=== PATIENT | male | born 1955 | race Caucasian/White ===

== ENCOUNTER 2016-07-05 07:12 | Day surgery (SDC) | payer OTHER ==
[~2016-07-05] VITALS: Ht 185.4 cm; Wt 104.3 kg
[~2016-07-05 07:12] MED LIST: ASPI-973 PO; ATOR20TA PO; HYDR-4003 PO; HYDR25TA4 PO; LEVO200T6 PO; LISI-567 PO; METF500T4 PO; METO50TA3 PO; ONDA4TAB9 PO; Sodium Chloride LOK Flush 10 mL Syringe IV PRN; fentaNYL-PF 50 mCg/mL 2 mL Inj IVPUSH PRN
[2016-07-05 08:10] VITALS: BP 143/102; PULSE 98; RESP 18; O2SAT 99
[2016-07-05] MEDS ORDERED: 0.9% Sodium Chloride 1,000 ML IV ONE ×2 (08:50)
[2016-07-05 09:45] VITALS: BP 142/81; PULSE 69; RESP 16; O2SAT 98
[2016-07-05 09:57] VITALS: BP 125/70; PULSE 84; RESP 14; O2SAT 98
[2016-07-05 10:06] VITALS: BP 137/82; PULSE 81; RESP 16; O2SAT 97
--- NOTE | 2016-07-05 13:12 | ENDO ---
[address] [address] ENDOSCOPY PROCEDURE PATIENT: RACHEL ROOT : 1955 MR#: [id number] ADMIT: 07/05/2016 JOB ID: [id number] DATE: 07/05/2016 TYPE OF OPERATION: 1. Esophagogastroduodenoscopy with biopsy. 2. Colonoscopy with hot snare polypectomy. PREOPERATIVE DIAGNOSIS(ES): Abdominal pain. Constipation, colorectal cancer screening. POSTOPERATIVE DIAGNOSIS(ES): 1. Mild nonerosive gastritis. 2. There is a 5 mm polyp seen in the sigmoid colon removed by hot snare polypectomy. 3. Tortuous colon. ANESTHESIA: 1. Fentanyl 200 mcg. 2. Versed 10 mg IV administered. COMPLICATION: None. BLOOD LOSS: Minimal. DESCRIPTION OF PROCEDURE: After risks and benefits were explained to the patient, informed consent was obtained. After anesthesia administered, an upper endoscope was then inserted into the mouth intubating into the esophagus, stomach, second portion of duodenum. Mucosa carefully examined. After procedure was done, the scope was withdrawn and the procedure terminated. Colonoscope was inserted from the rectum to the cecum. Mucosa carefully examined. Prep of the patient was fair. After the procedure was done, the scope withdrawn and procedure terminated. FINDINGS: Upon inspection of the esophagus, the esophagus was normal without masses, ulcers, lesions. Z-line located at 40 cm from incisors. Upon entering the stomach, the stomach showed mild nonerosive gastritis. Retroflexion was normal. No masses or ulcers were seen. Duodenal bulb, first and second portion were normal. Biopsies taken from duodenum, antrum and body of the stomach. Upon inspection of the anus, no masses, hemorrhoids, ulcers or fissures that were seen. Throughout the entire examination, there is a 5 mm sigmoid polyp removed by hot snare polypectomy. The colon was torturous. Retroflexion was normal. IMPRESSION: 1. Tortuous colon. 2. A 5 mm polyp removed by hot snare polypectomy. 3. Mild nonerosive gastritis. RECOMMENDATIONS: 1. Await pathology results. 2. Repeat colonoscopy in five years. 3. Follow up with [facility] an [facility].
--- NOTE | 2016-07-10 15:55 | PATH ---
SURGICAL PATHOLOGY Attending Physician:Denver Toscano MD CASE STATUS: Signed Out PATIENT NAME: RACHEL ROOT PID: [id number] : 1955 DATE COLLECTED:07/05/2016 22:15 SPECIMEN: 1: Duodenum, Biopsy 2: Stomach, Antrum, Biopsy 3: Gastric, Biopsy 4: Colon, Biopsy CLINICAL HISTORY: 1). DUODENUM 2). GASTRIC ANTRUM 3). GASTRIC BODY 4). SIGMOID COLON POLYP FINAL DIAGNOSIS: 1. Duodenum, Biopsy: Duodenal mucosa with no diagnostic abnormality. Negative for active inflammation, features of sprue, dysplasia, or malignancy. 2. Gastric Antrum, Biopsy: Portions of gastric antral mucosa with mild chronic gastritis and focal reactive gastropathy. No definite H. pylori organisms identified by H&E stain. Immunohistochemistry studies pending; results will be reported as an addendum. Negative for intestinal metaplasia, dysplasia, and malignancy. 3. Gastric Body, Biopsy: Portions of gastric body-type mucosa with no diagnostic abnormality. No definite H. pylori organisms identified by H&E stain. Negative for intestinal metaplasia, dysplasia, and malignancy. 4. Sigmoid Colon, Polyp, Biopsy: Tubular adenoma; negative for high-grade dysplasia. ICD10: K63.5 GROSS DESCRIPTION: Received are four formalin-filled containers, each labeled with the patient' s name. 1. Received in formalin, labeled with the patient' s name and "duodenum", are two fragments of ferrara, soft tissue ranging in size from 0.1 x 0.1 x 0.1 cm to 0.2 x 0.1 x 0.1 cm. All fragments are totally submitted in cassette 1A. 2. Received in formalin, labeled with the patient' s name and "gastric antrum", are two fragments of ferrara, soft tissue ranging in size from 0.1 x 0.1 x 0.1 cm to 0.2 x 0.1 x 0.1 cm. All fragments are totally submitted in cassette 2A. 3. Received in formalin, labeled with the patient' s name and "gastric body", are two fragments of ferrara, soft tissue ranging in size from 0.1 x 0.1 x 0.1 cm to 0.2 x 0.1 x 0.1 cm. All fragments are totally submitted in cassette 3A. 4. Received in formalin, labeled with the patient' s name and "sigmoid polyp", is one fragment of ferrraa, soft tissue measuring 0.3 x 0.2 x 0.2 cm. The fragment is totally submitted in cassette 4A. ([id number]) ICD-9 CODES: CPT CODES: 1: 16351 2: 66849, 15756 3: 90619 4: 41304 PROCEDURE/ADDENDA: Immunohistochemistry SPI Interpretation {Not Entered} Results-Comments Immunohistochemistry Results 2.GASTRIC ANTRUM BIOPSY: NEGATIVE FOR HELICOBACTER PYLORI BY IMMUNOHISTOCHEMISTRY. This test was developed and its performance characteristics determined by [facility]. It has not been cleared or approved by the [place]. Food and Drug Administration. The FDA has determined that such clearance or approval is not necessary. This test is used for clinical purposes. It should not be regarded as investigational or for research. Electronically Signed Out Flaco Martinez MD Electronically Signed Out Deidra Allen MD [facility] [address], [place] [address] Technical component performed at [facility], [address], [place], [address]
== END 2016-07-05 23:59 | disposition home or self-care (01) ==
LOC: END 07:12
PROVIDERS: ATTEND Internal Medicine Gastroenterology
DX: D12.5 Benign neoplasm of sigmoid colon (principal); K29.50 Unspecified chronic gastritis without bleeding; I25.10 Atherosclerotic heart disease of native coronary artery without angina pectoris; Z79.82 Long term (current) use of aspirin; Z79.84 Long term (current) use of oral hypoglycemic drugs; E03.9 Hypothyroidism, unspecified; E11.42 Type 2 diabetes mellitus with diabetic polyneuropathy
CPT/HCPCS: 43239; 45385; 99153; G0500; J7030